=== PATIENT | female | born 1985 | race African-American/Black ===

== ENCOUNTER 2021-04-21 18:47 | Emergency (ER) | payer BC, OTHER ==
[~2021-04-21] VITALS: Ht 157.5 cm; Wt 59.0 kg
[~2021-04-21 18:47] MED LIST: APAP500 PO; DEPO-MEDRO40 MG/1 ML; DERMOPLAST SPRA56 ML; FIORICET 50-321 EACH PO; HEADACHE MED; IBUPROFEN 200200 M1 PO; IBUPROFEN 400400 M1 PO; IBUPROFEN 800800 M1 PO; IRON325 PO; LANOLIN56 GM; NORCO 5-325 TA1 EACH PO; NORFLEX100 MG PO; PRENATAL PO; SENNA PO; TESSALON200 MG PO; TUCKS MEDICATE1 EAC1; ZANTAC 150MG T150 M1 PO; ZPAK PO
[2021-04-21 19:47] LABS: URINE BILIRUBIN NEGATIVE (Negative); URINE BLOOD 2+ (Negative); URINE CLARITY SL CLOUDY; URINE COLOR YELLOW; URINE GLUCOSE-RANDOM* NEGATIVE (Negative); URINE KETONES 3+ (Negative); URINE NITRITE-REFLEX NEGATIVE (Negative); URINE PROTEIN (DIPSTICK) NEGATIVE (Negative); URINE SPECIFIC GRAVITY 1.025 (1.005-1.035)
[2021-04-21 19:51] LABS: URINE LEUKOCYTES-REFLEX 2+ (Negative)
[2021-04-21 19:58] LABS: URINE REDUCING SUBSTANCE NEGATIVE
[2021-04-21 20:16] LABS: BACTERIA-REFLEX >30 Many /HPF (None Seen); CASTS None Seen /LPF (None Seen); CRYSTALS None Seen /LPF (None Seen); MUCUS 4-6 Moderate strn/LPF (None Seen); SQUAMOUS 4-10 Moderate /LPF (0-3); URINE RBC 1-2 Rare /HPF (NONE SEEN)
[2021-04-21 21:53] VITALS: BP 91/64
[2021-04-21 22:50] LABS: ABSOLUTE NEUTROPHILS 5.7 thou/uL (1.4-8.2); BASOPHILS 0.7 % (0.0-2.0); EOSINOPHILS 0.1 % (0.0-3.0); HEMATOCRIT 40.2 % (37.0-47.0); HEMOGLOBIN 13.8 gm/dL (12.0-15.0); LYMPHOCYTES 13.6 % (24.0-44.0); MCH 30.6 pg (26.0-34.0); MCHC 34.3 g/dL (28.0-37.0); MCV 89.1 fL (80.0-100.0); PLATELET COUNT 160 thou/uL (150-400); POLYS 78.6 % (36.0-66.0); RBC 4.51 mil/uL (4.20-5.00); RDW 12.6 % (10.5-14.5); WBC 7.2 thou/uL (4.0-11.0)
[2021-04-21 22:56] LABS: CALCIUM 8.3 mg/dL (8.5-10.1); CREATININE 0.8 mg/dL (0.6-1.0); POTASSIUM 3.4 mmol/L (3.5-5.1)
[2021-04-21 23:14] LABS: ALBUMIN 3.6 g/dL (3.4-5.0); TOTAL BILIRUBIN 0.5 mg/dL (0.2-1.0); TOTAL PROTEIN 7.6 g/dL (6.4-8.2)
[2021-04-22] MEDS ORDERED: METRONIDAZOLE500 M4 PO (00:09)
[2021-04-22] MEDS ORDERED: MACROBID 100 M100 M1 PO (00:09)
== END 2021-04-22 01:30 | disposition home or self-care (01) ==
LOC: ER 18:47
PROVIDERS: Emergency Medicine; Nurse Practitioner Family; Student in an Organized Health Care Education/Training Program
DX: U07.1 COVID-19 (principal); N39.0 Urinary tract infection, site not specified; E86.0 Dehydration; A59.01 Trichomonal vulvovaginitis; G43.909 Migraine, unspecified, not intractable, without status migrainosus; Z79.899 Other long term (current) drug therapy